=== PATIENT | male | born 1985 | race American Indian/Alaskan Native ===

== ENCOUNTER 2016-12-01 16:19 | Emergency (ER) | payer OTHER ==
[2016-12-01 16:28] VITALS: TEMP 97.7
[2016-12-01] MEDS ORDERED: ONDANSETRON 4 MG/2 ML VIAL IVP ONE (17:10)
[2016-12-01] MEDS ORDERED: FAMOTIDINE 20 MG/NACL 50 ML IV ONE (17:10)
[2016-12-01] MEDS ORDERED: NS 1,000 ML IV ONE (17:10)
[2016-12-01] MEDS ORDERED: HYDROmorphONE/DILAUDID 1 MG/ML SYR IVP ONE (17:13)
[2016-12-01 17:20] LABS: % IMMATURE GRANULYOCYTES 0.4 % (0.0-1.1); ABSOLUTE IMMATURE GRANULOCYTES 0.04 10^3/uL (0.00-0.10); ADD DIFF? NO; ADD MORPH? NO; ADD SCAN? NO; ATYPICAL LYMPHOCYTE FLAG 0 (0-99); FRAGMENT RBC FLAG 0 (0-99); HEMATOCRIT 48.5 % (40.0-51.0); HEMOGLOBIN 16.4 g/dL (13.7-17.5); LEFT SHIFT FLG 0 (0-99); LIPEMIA HEMOLYSIS FLAG 90 (0-99); MEAN CELL HEMOGLOBIN 30.6 pg (27.9-34.1); MEAN CELL HEMOGLOBIN CONCENTR. 33.8 g/dL (32.4-36.7); MEAN CELL VOLUME 90.5 fL (81.5-99.8); MEAN PLATELET VOLUME 11.2 fL (8.7-11.7); PLATELET CLUMPS FLAG 20 (0-99); PLATELET COUNT 215 10^3/uL (150-400); RED BLOOD CELL COUNT 5.36 10^6/uL (4.40-6.38); RED CELL DISTRIBUTION WIDTH 12.2 % (11.5-15.2)
--- NOTE | 2016-12-01 17:25 | EDPHY ---
H & P Time Seen by Provider: 12/01/16 16:47 HPI/ROS: HPI Abdominal pain. 31-year-old male by private vehicle. This patient complains of worsening mid epigastric abdominal pain ongoing x2 days. He describes it as a burning and aching sensation. It has been constant for at least the last 12-24 hours. He has had several episodes of nonbilious, nonbloody vomiting over the last 2 days secondary to the pain. Last bowel movement was yesterday. He describes this is normal. No bloody or melenic stool. No diarrhea. He has not had a fever. He has a remote history of irritable bowel syndrome. Last issue involving IBS was over 10 years ago. ROS: Constitutional: No fever, no chills. No weakness. Eyes: No discharge. No changes in vision. ENT: No sore throat. No nasal congestion or rhinorrhea. Respiratory: No cough. No shortness of breath. Cardiac: No chest pain, no palpitations. Gastrointestinal: No abdominal pain, no vomiting, no diarrhea. Genitourinary: No hematuria. No dysuria or increased frequency with urination. Musculoskeletal: No back pain. No neck pain. No myalgias or arthralgias. Skin: No rashes. Neurological: No headache. No focal weakness or altered sensation. Past medical history: Anxiety. Takes buspirone for anxiety. As above. Social history: Here by himself. Nonsmoker. No alcohol. Physical Exam: General Appearance: Alert, sitting upright on the gurney. He appears uncomfortable. This patient is responding to questions appropriately and in full sentences. This patient appears well-hydrated and well-nourished. Eyes: Pupils equal and round no pallor or injection. No lid edema, erythema or injection. Respiratory: There are no retractions, lungs are clear to auscultation with good air movement bilaterally. Cardiovascular: Regular rate and rhythm. No murmur. Gastrointestinal: Abdomen is soft mid epigastric tenderness on palpation, no masses, bowel sounds normal. No focal tenderness at McBurney's point. No Leon sign. Neurological: Motor sensory function is grossly intact. Cranial nerves are normal. Gait is normal. Skin: Warm and dry, no rashes. Musculoskeletal: No CVA tenderness on palpation. Extremities are symmetrical. All joints range without pain or impingement. Psychiatric: No agitation. No depression. Database: EKG: Imaging: CT scan of abdomen and pelvis with IV contrast: Essentially unremarkable. No significant pathology. The aorta is normal. Appendix was well visualized and is normal. No evidence of ureterolithiasis. Results were discussed with staff radiologist Dr. Lio Chowdary. Procedures: Emergency department course: IV was placed. He was placed on a monitor. He was initially given 20 mg of IV Pepcid, 0.5 mg of IV hydromorphone and 4 mg of IV Zofran. He was started on IV normal saline with 1 L to be given over the next hour. He will be sent for CT scan of his abdomen and pelvis with contrast to further evaluate his upper abdominal pain. He consents to this study. 6:00 p.m., patient currently in CT. Nurse reports pain is well controlled currently. 6:30 p.m., patient re-evaluated. Results of blood work and CT scan discussed with him. Repeat abdominal exam he is soft and without significant tenderness on palpation. He still states however that he is having some discomfort. He seems very anxious. He was given 0.5 mg of IV Ativan. He was given 40 mg of oral Protonix which I will prescribe for him on discharge. He was given a GI cocktail. 6:50 p.m., patient re-evaluated. Resting comfortably at this time. He denies any pain. Results of urinalysis discussed. Need for repeat urinalysis discussed. No CT evidence of kidney stone but this is possible given his pain and hematuria. Repeat abdominal exam is soft, nontender nondistended. He feels comfortable going home and I feel he is safe for discharge. Follow-up and return to emergency department precautions have been discussed with him. All of his questions were answered. He will follow up with [facility] physician for re-evaluation and as needed gastroenterology consultation. He was discharged in good condition. Differential Diagnosis: The differential diagnosis on this patient includes but is not limited to pancreatitis, cholecystitis, peptic ulcer disease, perforated peptic ulcer, nephrolithiasis, aortic aneurysm, aortic dissection. This represents a partial list of diagnoses considered. These considerations are based on history, physical exam, past history, reassessment and diagnostic testing. Smoking Status: Never smoked Constitutional: Initial Vital Signs Temperature (C) 36.5 C 12/01/16 16:26 Heart Rate 70 12/01/16 16:26 Respiratory Rate 17 12/01/16 16:26 Blood Pressure 137/90 H 12/01/16 16:26 O2 Sat (%) 96 12/01/16 16:26 O2 Delivery Mode Room Air Allergies/Adverse Reactions: No Known Allergies Allergy (Unverified 12/01/16 16:25) Home Medications: Medication Instructions Recorded Albuterol 12/01/16 Ambien 12/01/16 Pantoprazole Sodium [Protonix] 40 mg PO DAILY #14 tab 12/01/16 busPIRone 12/01/16 Medical Decision Making - Data Points Laboratory Results: Laboratory Results 12/01/16 17:00 12/01/16 17:00 12/01/16 12/01/16 12/01/16 18:30 17:00 17:00 WBC 10.36 10^3/uL H 10^3/uL (3.80-9.50) RBC 5.36 10^6/uL 10^6/uL (4.40-6.38) Hgb 16.4 g/dL g/dL (13.7-17.5) Hct 48.5 % % (40.0-51.0) MCV 90.5 fL fL (81.5-99.8) MCH 30.6 pg pg (27.9-34.1) MCHC 33.8 g/dL g/dL (32.4-36.7) RDW 12.2 % % (11.5-15.2) Plt Count 215 10^3/uL 10^3/uL (150-400) MPV 11.2 fL fL (8.7-11.7) Neut % (Auto) 62.3 % % (39.3-74.2) Lymph % (Auto) 19.5 % % (15.0-45.0) [place] % (Auto) 14.2 % H % (4.5-13.0) Eos % (Auto) 2.7 % % (0.6-7.6) Baso % (Auto) 0.9 % % (0.3-1.7) Nucleat RBC Rel Count 0.0 % % (0.0-0.2) Absolute Neuts (auto) 6.46 10^3/uL 10^3/uL (1.70-6.50) Absolute Lymphs (auto) 2.02 10^3/uL 10^3/uL (1.00-3.00) Absolute Monos (auto) 1.47 10^3/uL H 10^3/uL (0.30-0.80) Absolute Eos (auto) 0.28 10^3/uL 10^3/uL (0.03-0.40) Absolute Basos (auto) 0.09 10^3/uL 10^3/uL (0.02-0.10) Absolute Nucleated RBC 0.00 10^3/uL 10^3/uL (0-0.01) Immature Gran % 0.4 % % (0.0-1.1) Immature Gran # 0.04 10^3/uL 10^3/uL (0.00-0.10) Sodium 140 mEq/L mEq/L (134-144) Potassium 4.0 mEq/L mEq/L (3.5-5.2) Chloride 105 mEq/L mEq/L (97-110) Carbon Dioxide 22 mEq/l mEq/l (22-31) Anion Gap 13 mEq/L mEq/L (8-16) BUN 14 mg/dL mg/dL (7-23) Creatinine 0.9 mg/dL mg/dL (0.7-1.3) Estimated GFR > 60 Glucose 97 mg/dL mg/dL (70-100) Calcium 10.1 mg/dL mg/dL (8.5-10.4) Total Bilirubin 0.9 mg/dL mg/dL (0.1-1.4) Conjugated Bilirubin 0.6 mg/dL H mg/dL (0.0-0.5) Unconjugated Bilirubin 0.3 mg/dL mg/dL (0.0-1.1) AST 38 IU/L IU/L (17-59) ALT 54 IU/L IU/L (21-72) Alkaline Phosphatase 84 IU/L IU/L (38-126) Total Protein 8.6 g/dL H g/dL (6.3-8.2) Albumin 5.1 g/dL H g/dL (3.5-5.0) Lipase 66.0 IU/L IU/L (23-300) Urine Color YELLOW Urine Appearance CLEAR Urine pH 6.0 (5.0-7.5) Ur Specific [place] 1.031 H (1.002-1.030) Urine Protein NEGATIVE (NEGATIVE) Urine Ketones TRACE H (NEGATIVE) Urine Blood 1+ H (NEGATIVE) Urine Nitrate NEGATIVE (NEGATIVE) Urine Bilirubin NEGATIVE (NEGATIVE) Urine Urobilinogen NEGATIVE EU EU (0.2-1.0) Ur Leukocyte Esterase NEGATIVE (NEGATIVE) Urine RBC 15-25 /hpf H /hpf (0-3) Urine WBC 3-5 /hpf H /hpf (0-3) Ur Epithelial Cells NONE SEEN /lpf /lpf (NONE-1+) Ur Culture Indicated? NOT INDICATED (NI) Urine Glucose NEGATIVE (NEGATIVE) Medications Given: Discontinued Medications Hydromorphone HCl (Dilaudid) 0.5 mg IVP EDNOW ONE Stop: 12/01/16 17:14 Last Admin: 12/01/16 17:25 Dose: 0.5 mg Sodium Chloride (Ns) 1,000 mls @ 0 mls/hr IV ONCE ONE PRN Reason: Wide Open Stop: 12/01/16 17:11 Last Admin: 12/01/16 17:25 Dose: 1,000 mls Famotidine/Sodium Chloride (Pepcid 20 Mg (Premix)) 50 mls @ 200 mls/hr IV EDNOW ONE Stop: 12/01/16 17:24 Last Admin: 12/01/16 17:30 Dose: 50 mls Lorazepam (Ativan Injection) 0.5 mg IVP EDNOW ONE Stop: 12/01/16 18:29 Last Admin: 12/01/16 18:39 Dose: 0.5 mg Miscellaneous Medication (Gi Cocktail) 55 ml PO EDNOW ONE Stop: 12/01/16 18:28 Last Admin: 12/01/16 18:39 Dose: 55 ml Ondansetron HCl (Zofran) 4 mg IVP EDNOW ONE Stop: 12/01/16 17:11 Last Admin: 12/01/16 17:25 Dose: 4 mg Pantoprazole Sodium (Protonix) 40 mg PO EDNOW ONE Stop: 12/01/16 18:29 Last Admin: 12/01/16 18:39 Dose: 40 mg Departure - Departure Disposition: Home, Routine, Self-Care Clinical Impression: Abdominal pain, Anxiety Condition: Good Instructions: Abdominal Pain (ED), Anxiety (ED) Additional Instructions: Read and follow provided instructions. Follow-up with your primary care physician at [facility] in 1-2 days for re-evaluation. Have a urinalysis repeated at this visit as discussed. Take your anxiety medication as prescribed. Return to the emergency department for worsening abdominal pain, blood in your stool, vomiting, fever or other serious concerns. Referrals: Mert Mercado MD [Medical Doctor] - As per Instructions Maik Sanders MD [Medical Doctor] - As per Instructions Prescriptions: Pantoprazole Sodium [Protonix] 40 mg PO DAILY #14 tab
[2016-12-01 17:29] LABS: ALANINE AMINOTRANSFERASE 54 IU/L (21-72); ALBUMIN 5.1 g/dL (3.5-5.0); ALKALINE PHOSPHATASE 84 IU/L (38-126); ANION GAP 13 mEq/L (8-16); ASPARTATE AMINOTRANSFERASE 38 IU/L (17-59); BILIRUBIN,TOTAL 0.9 mg/dL (0.1-1.4); BILIRUBIN-CONJUGATED 0.6 mg/dL (0.0-0.5); BILIRUBIN-UNCONJUGATED 0.3 mg/dL (0.0-1.1); CALCIUM 10.1 mg/dL (8.5-10.4); CARBON DIOXIDE 22 mEq/l (22-31); CHLORIDE 105 mEq/L (97-110); CREATININE 0.9 mg/dL (0.7-1.3); GLOMERULAR FILTRATION RATE > 60; GLUCOSE 97 mg/dL (70-100); SODIUM 140 mEq/L (134-144); TOTAL PROTEIN 8.6 g/dL (6.3-8.2)
[2016-12-01] MEDS ORDERED: IOPAMIDOL (ISOVUE-300) 100 ML BTL IV ONE (17:40)
[2016-12-01] MEDS ORDERED: MAALOX/LIDO/HYOSC GI COCKTAIL 55 ML BOTTLE PO ONE ×2 (18:27→19:00)
[2016-12-01] MEDS ORDERED: PANTOPRAZOLE SODIUM 40 MG TAB PO ONE (18:28)
[2016-12-01] MEDS ORDERED: LORazepam 2 MG/ML INJ IVP ONE (18:28)
[2016-12-01 18:50] LABS: COLOR YELLOW; LEUKOCYTE ESTERASE,URINE NEGATIVE (NEGATIVE); NITRITE,URINE NEGATIVE (NEGATIVE)
[2016-12-01 18:53] LABS: RBC,URINE 15-25 /hpf (0-3)
[2016-12-01] MEDS ORDERED: MAALOX/LIDO/HYOSC GI COCKTAIL 55 ML BOTTLE ONE (19:01)
[2016-12-01 19:07] VITALS: BP 122/85; PULSE 84; RESP 16; O2SAT 95
== END 2016-12-01 19:14 | disposition home or self-care (01) ==
DX: R10.13 Epigastric pain (principal); F41.9 Anxiety disorder, unspecified
CPT/HCPCS: 96374; J1170; J2405; Q9967